=== PATIENT | female | born 1960 | race Two or more races ===

== ENCOUNTER → 2017-02-05 | Outpatient (CLI) | payer OTHER ==
--- NOTE | 2017-02-05 17:40 | CARD ---
APPROVED REPORT EXAM: Two-dimensional and M-mode echocardiogram with Doppler and color Doppler. Other Information Quality : Average Rhythm : NSR INDICATION Aortic Valve Disease 2D DIMENSIONS RVDd2.7 (2.9-3.5cm)Left Atrium(2D)3.1 (1.6-4.0cm) IVSd0.9 (0.7-1.1cm)Aortic Root(2D)2.7 (2.0-3.7cm) LVDd4.3 (3.9-5.9cm)LVOT Diameter2.0 (1.8-2.4cm) PWd0.9 (0.7-1.1cm)LVDs2.4 (2.5-4.0cm) FS (%) 30.0 %SV64.9 ml LVEF(%)60.0 (>50%) Aortic Valve AoV Peak Leroy.160.1cm/sAoV VTI25.2cm AO Peak GR.10.3mmHgLVOT Peak Leroy.117.8cm/s LVOT VTI 23.10cmAO Mean GR.5mmHg LIT (VMAX)2.22ev9YOF (VTI)2.92cm2 AI P 1/2 [id number] Mitral Valve MV E Wucdtslq81.0cm/sMV DECEL [id number] MV A Skubxpep26.5cm/sMV [id number] E/A Ratio0.7MV A [id number] MVA (PHT)3.45cm2 TDI E/Lateral E'5.7E/Medial E'7.8 Pulmonary Valve PV Peak Ntyxezts48.4cm/sPV Peak Grad.4mmHg RVOT VTI16.1cm Tricuspid Valve TR P. Zducqzuc405zs/sRAP [id number] TR Peak Gr.47ngBhBXAP51mkKy Pulmonary Vein S1 Wdimbyzs52.1cm/sD2 Lyqdimuu19.6cm/s LEFT VENTRICLE The left ventricle is normal size. There is normal left ventricular wall thickness. Left ventricle sy stolic function is normal. The Ejection Fraction is 60%. There is normal LV segmental wall motion. Ti ssue Doppler imaging reveals mild left ventricular diastolic dysfunction. Transmitral Doppler flow pa ttern is Grade I-abnormal relaxation pattern. There is no ventricular septal defect visualized. RIGHT VENTRICLE The right ventricle is normal size. The right ventricular systolic function is normal. ATRIA The left atrium size is normal. The right atrium size is normal. The interatrial septum is intact wit h no evidence for an atrial septal defect or patent foramen ovale as noted on 2-D or Doppler imaging. AORTIC VALVE The aortic valve is mildly calcified. The aortic valve is trileaflet. Doppler and Color Flow revealed mild to moderate aortic regurgitation. There is no significant aortic valvular stenosis. MITRAL VALVE Mitral annular calcification is mild to moderate. There is no mitral valve stenosis. Doppler and [place] r Flow revealed no mitral valve regurgitation noted. TRICUSPID VALVE The tricuspid valve is normal in structure and function. Doppler and Color Flow revealed trace to mil d tricuspid regurgitation. The PA pressure was estimated at 29 mmHg. There is no tricuspid valve sten osis. PULMONIC VALVE The pulmonic valve is not well visualized. Doppler and Color Flow revealed no pulmonic valvular regur gitation. There is no pulmonic valvular stenosis. GREAT VESSELS The aortic root is normal in size. Normal pulmonary venous flow (Doppler). The IVC is normal in size and collapses >50% with inspiration. PERICARDIAL EFFUSION There is no evidence of significant pericardial effusion. Critical Notification Critical Value: No <Conclusion> Left ventricle systolic function is normal. The Ejection Fraction is 60%. Tissue Doppler imaging reveals mild left ventricular diastolic dysfunction. Transmitral Doppler flow pattern is Grade I-abnormal relaxation pattern. The left atrium size is normal. The right atrium size is normal. The aortic valve is mildly calcified. The aortic valve is trileaflet. Doppler and Color Flow revealed mild to moderate aortic regurgitation. Mitral annular calcification is mild to moderate. Doppler and Color Flow revealed no mitral valve regurgitation noted. Doppler and Color Flow revealed trace to mild tricuspid regurgitation. The PA pressure was estimated at 29 mmHg. The pulmonic valve is not well visualized. There is no evidence of significant pericardial effusion.
== END | disposition home or self-care (01) ==
LOC: ECHO 13:08
PROVIDERS: ATTEND Internal Medicine Cardiovascular Disease
DX: I35.1 Nonrheumatic aortic (valve) insufficiency (principal); I31.3 Pericardial effusion (noninflammatory)
CPT/HCPCS: 93306

== ENCOUNTER → 2018-11-24 | Outpatient (CLI) | payer OTHER ==
--- NOTE | 2018-11-24 15:36 | PCVCIMAG ---
APPROVED REPORT Study performed: 11/24/2018 13:39:19 EXAM: Comprehensive 2D, Doppler, and color-flow Echocardiogram Patient Location: Echo lab Status: routine BSA: 1.65 HR: 72 bpmBP: 132/78 mmHg Rhythm: NSR Other Information Study Quality: Adequate Risk Factors: Cardiac Risk Factors: HTN, Hyperlipidemia Indications aortic insufficiency 2D Dimensions IVSd: 10.76 (7-11mm) LVDd: 40.46 mm PWd: 9.43 (7-11mm)Ascending Ao: 32.22 (22-36mm) LVDs: 30.60 (25-40mm) Left Atrium: 32.64 (27-40mm) Aortic Root: 30.73 mm LV Single Plane 4CH: 60.23 % LV Single Plane 2CH: 61.66 % Biplane EF: 60.6 % Volumes Left Atrial Volume (Systole) Single Plane 4CH: 38.91 mLSingle Plane 2CH: 49.05 mL LA ESV Index: 27.00 mL/m2 Aortic Valve AoV Peak Leroy.: 1.76 m/s AO Peak Gr.: 12.41 mmHgLVOT Max P.72 mmHg LVOT Max V: 1.09 m/s AI Vmax: 4.67 m/s AI [place]: 3.53 m/s2 AI PHT: 383.33 ms Mitral Valve E/A Ratio: 0.6 MV Decel. Time: 332.64 ms MV E Max Leroy.: 0.51 m/s MV A Leroy.: 0.82 m/s IVRT: 93.43 ms Pulmonary Valve PV Peak Leroy.: 0.93 m/sPV Peak Gr.: 3.45 mmHg Pulmonary Vein P Vein S: 0.24 m/sP Vein A: 0.30 m/s P Vein D: 0.31 m/sP Vein A Dur.: 128.0 msec P Vein S/D Ratio: 0.77 Tricuspid Valve TR Peak Leroy.: 2.44 m/s TR Peak Gr.: 23.84 mmHg TV Vmax: 0.46 m/s Left Ventricle The left ventricle is normal size. There is normal LV segmental wall motion. There is normal left ventricular wall thickness. Left ventricular systolic function is normal. The left ventricular ejection fraction is within the normal range. LVEF is 60%. Grade I - abnormal relaxation pattern. Right Ventricle The right ventricle is normal size. The right ventricular systolic function is normal. Atria The left atrium size is normal. The right atrium size is normal. Aortic Valve The aortic valve is normal in structure. Moderate aortic regurgitation. There is no aortic valvular stenosis. Mitral Valve The mitral valve is normal in structure. Trace mitral regurgitation. No evidence of mitral valve stenosis. Tricuspid Valve The tricuspid valve is normal in structure. Mild tricuspid regurgitation with PAP of 31 mmHg. Pulmonic Valve The pulmonary valve is normal in structure. Mild pulmonic regurgitation. Great Vessels The aortic root is normal in size. IVC is normal in size and collapses >50% with inspiration. Pericardium There is no pericardial effusion. There is no pleural effusion. <Conclusion> The left ventricle is normal size. LVEF is 60%. The aortic valve is normal in structure. Moderate aortic regurgitation. The mitral valve is normal in structure. Trace mitral regurgitation. The tricuspid valve is normal in structure. Mild tricuspid regurgitation with PAP of 31 mmHg. The pulmonary valve is normal in structure. Mild pulmonic regurgitation. There is no pericardial effusion.
== END | disposition home or self-care (01) ==
LOC: PCVCIMAG 13:44
PROVIDERS: ATTEND Internal Medicine
DX: I08.8 Other rheumatic multiple valve diseases (principal)
CPT/HCPCS: 93306

== ENCOUNTER → 2019-04-09 | Outpatient (CLI) | payer OTHER ==
--- NOTE | 2019-04-10 10:44 | PCVCIMAG ---
APPROVED REPORT Study performed: 04/09/2019 16:20:06 Exam: Stress Echocardiogram Indication: Syncope Patient Location: Echo lab Stress Nurse: Lucy Ovalle RN Status: routine Ht: 5 ft 5 in HR: 93 bpm BP: 110/80 mmHg Rhythm: NSR Procedure The patient underwent an Exercise Stress Test using the [facility] Protocol. Blood pressure, heart rate, and EKG were monitored. An Echocardiogram was performed by train control technician in four stages in quad fashion. At peak stress, four selected images were obtained and placed side by side with resting images for comparison. Stress Test Details Stress Test: Exercise stress testing was performed using a Demarcus protocol. HR Resting HR: 93 bpmMax Heart Rate (APMHR): 164 bpm Max HR Achieved: 160 bpmTarget HR (85% APMHR): 139 bpm % of APMHR: 97 Recovery HR: 88 bpm HR response to stress: Normal HR response to stress BP Resting BP: 110/80 mmHg Max BP: 142/78 mmHg Recovery BP: 118/76 mmHg BP response to stress: Normal blood pressure response to stress. ECG Resting ECG: Sinus Rhythm Stress ECG: Clear Recovery ECG: Sinus Rhythm Clinical Reason for Termination: Maximal effort Exercise duration: 6 min 57 sec Highest Stage Achieved: Stage 3: 3.4 mph at 14% grade. Exercise capacity: 9.90 METs Overall Exercise Capacity for Age: Normal Stress ECG Conclusion 1. Subjectively negative for ischemia 2. Echocardiographically negative for ischemia 3. Reduced functional capacity Pre-Stress Echo The resting Echocardiogram showed normal left ventricular contractility with an estimated Ejection Fraction of about 55-60%. Normal wall motion in all segments on baseline images. Post-Stress Echo The stress Echocardiogram showed normal left ventricular contractility with an estimated Ejection Fraction of about 60-65%. Normal augmentation of wall motion in all segments on post stress images. Clinical No clinical or ECG evidence for ischemia. Conclusion Clinical Response: Non-ischemic Exercise Capacity: Average Stress ECG Response: Non-ischemic Stress Echo Images: Non-ischemic The left ventricle is normal in size and wall thickness in both the rest and stress images. Mild aortic insufficiency. No other valvular abnormalities. 1. Low risk study Other Information Study Quality: Adequate <Conclusion> The left ventricle is normal in size and wall thickness in both the rest and stress images. Mild aortic insufficiency. No other valvular abnormalities. 1. Low risk study
== END | disposition home or self-care (01) ==
LOC: PCVCIMAG 16:22
PROVIDERS: ATTEND Internal Medicine
DX: I35.1 Nonrheumatic aortic (valve) insufficiency (principal); R55 Syncope and collapse
CPT/HCPCS: 93325; 93351